=== PATIENT | female | born 1995 | race African-American/Black ===

== ENCOUNTER 2020-10-09 11:46 | Emergency (ER) | payer OTHER, SELFPAY ==
[2020-10-09 11:58] VITALS: BP 123/83; PULSE 89; RESP 17; TEMP 36.6; O2SAT 98
[2020-10-09 12:14] LABS: Basophils Percent Auto 0.4 % (0.2-1.2); Eosinophils Absolute Auto 0.1 K/mm3 (0-0.3); Hematocrit 37.7 % (37.0-47.0); Hemoglobin 11.8 g/dL (12.0-15.0); Immature Granulocyte Absolute 0.03 K/mm3 (0.00-0.031); Immature Granulocyte Percent A 0.3 % (0-0.5); Lymphocytes Absolute Auto 2.41 K/mm3 (0.9-3.2); Lymphocytes Percent Auto 25.1 % (18.3-44.2); Mean Corpuscular HGB Conc 31.3 g/dl (32-36); Mean Corpuscular Hemoglobin 24.9 pg (26-34); Mean Corpuscular Volume 79.5 fl (80-100); Mean Platelet Volume 9.9 fl (7.4-10.4); Monocytes Absolute Auto 0.8 K/mm3 (0.1-0.6); Monocytes Percent Auto 8.4 % (2.6-8.5); Neutrophils Absolute Auto 6.2 K/mm3 (1.3-6.7); Neutrophils Percent Auto 64.8 % (45.5-73.1); Platelet Count Result 328 k/mm3 (150-375); Red Blood Count 4.74 M/mm3 (4.2-5.4); Red Cell Distribution Width 16.1 % (11.5-14.5); White Blood Count 9.6 K/mm3 (4.5-10.0)
[2020-10-09 12:26] LABS: Add Urine Microscopic? YES; Anion Gap 5 mmol/L (8-16); Appearance Urine Cloudy (Clear); Bacteria Urine Trace /hpf; Bilirubin Urine Negative (Negative); Blood Urea Nitrogen 11 mg/dL (7-17); Blood Urine Negative (Negative); Calcium 8.8 mg/dL (8.4-10.2); Carbon Dioxide 25 mmol/L (22-30); Chloride 107 mmol/L (98-107); Color Urine Yellow (Yellow); Estimated CRCL calculation 103 ml/min; Estimated Glomerular Filt Rate > 60; Glucose 111 mg/dL (65-105); Glucose Urine UA Negative (Negative); Ketones Urine Negative (Negative); Leukocyte Esterase Ur 2+ LEU/UL (Negative); Mucus Urine Rare /lpf; Nitrate Urine Negative (Negative); Potassium 3.9 mmol/L (3.4-5.0); Protein Urine 1+ mg/dL (Negative); Sodium 137 mmol/L (137-145); Specific Grav Ur 1.014 (1.001-1.035); Squamous Epithelial Cell Urine Many /hpf (Few); Transitional Epi Cells Urine Rare /hpf (None Seen); Urobilinogen Urine Negative mg/dL (<2.0); WBC Urine >75 /hpf
--- NOTE | 2020-10-09 12:31 | ED.ABDPAIN ---
HPI - Abdominal Pain General Chief Complaint: Urogenital-Female Stated Complaint: kidney pain Time Seen by Provider: 10/09/20 11:47 Source: patient Mode of arrival: ambulatory Limitations: no limitations History of Present Illness HPI narrative: Patient is a 25-year-old female who presents to emergency department for evaluation of urinary symptoms for the last 4 days noting frequency urgency patient notes possible concern for STD patient does not wish for pelvic exam though in the emergency department patient has not been seen for this complaint. Patient denies any fever chills nausea vomiting Related Data Allergies Allergy/AdvReac Type Severity Reaction Status Date / Time No Known Allergies Allergy Unknown Verified 10/09/20 12:02 Review of Systems Review of Systems: All systems reviewed & are unremarkable except as noted in HPI and below PMFSH Past Medical History Medical History (Updated 10/09/20 @ 12:50 by Pavel Phillips PA-C) Umbilical hernia Social History Social History (Updated 10/09/20 @ 12:32 by Pavel Phillips PA-C) Smoking status: Never smoker Gender identity (if verbalized by the patient): Female Exam Narrative: Exam Narrative: GENERAL: Well-appearing, well-nourished, and in no acute distress. HEAD: Normocephalic, atraumatic. EYES: PERRLA and EOMI. ENT: Nares clear, no rhinorrhea or epistaxis. Mucous membranes moist. CHEST: Clear to auscultation. No respiratory distress. No wheezes rales or rhonchi HEART: Regular rate and rhythm. No murmur heard. Normal peripheral pulses. ABDOMEN: Soft, nontender, nondistended EXTREMITIES: Normal range of motion. No edema. SKIN: Warm, dry, no rash. NEURO: No focal deficits. Alert and oriented x3. PSYCH: Normal mood and affect. Course Course Emergency Course: Patient refused pelvic exam and will follow with gynecology for discussion of pelvic exam evaluated for urinary symptoms in the emergency department no high risk changes in the blood work will be given follow-up with gynecology provided with reasons to return Vital Signs Vital signs: Vital Signs Temperature 97.9 F 10/09/20 11:58 Pulse Rate 89 10/09/20 11:58 Respiratory Rate 17 10/09/20 11:58 Blood Pressure 123/83 10/09/20 11:58 Pulse Oximetry 98 10/09/20 11:58 Temperature 97.9 F 10/09/20 11:58 Pulse Rate 89 10/09/20 11:58 Respiratory Rate 17 10/09/20 11:58 Blood Pressure 123/83 10/09/20 11:58 Pulse Oximetry 98 10/09/20 11:58 MDM - Abdominal Pain MDM Narrative Medical decision making narrative: Please patient evaluated for urinary symptoms found to have urinary tract infection given a dose of Rocephin prior to discharge refused pelvic exam will follow with gynecology has been given reasons to return Lab Data Result diagrams: 10/09/20 12:05 10/09/20 12:05 Labs: Lab Results 10/09/20 10/09/20 10/09/20 Range/Units 12:04 12:05 12:05 WBC 9.6 (4.5-10.0) K/mm3 RBC 4.74 (4.2-5.4) M/mm3 Hgb 11.8 L (12.0-15.0) g/dL Hct 37.7 (37.0-47.0) % MCV 79.5 L (80-100) fl MCH 24.9 L (26-34) pg MCHC 31.3 L (32-36) g/dl RDW 16.1 H (11.5-14.5) % Plt Count 328 (150-375) k/mm3 MPV 9.9 (7.4-10.4) fl Immature Gran % (Auto) 0.3 (0-0.5) % Neut % (Auto) 64.8 (45.5-73.1) % Lymph % (Auto) 25.1 (18.3-44.2) % Osborne % (Auto) 8.4 (2.6-8.5) % Eos % (Auto) 1.0 (0-4.4) % Baso % (Auto) 0.4 (0.2-1.2) % Lymph # (Auto) 2.41 (0.9-3.2) K/mm3 Osborne # (Auto) 0.8 H (0.1-0.6) K/mm3 Eos # (Auto) 0.1 (0-0.3) K/mm3 Baso # (Auto) 0.0 (0.0-0.1) K/mm3 Abs Immat Gran (auto) 0.03 (0.00-0.031) K/mm3 Absolute Neuts (auto) 6.2 (1.3-6.7) K/mm3 Absolute Nucleated RBC 0.0 (0.0-0.012) K/mm3 Nucleated RBC % 0.0 (0.0-0.2) % Sodium (137-145) mmol/L Potassium (3.4-5.0) mmol/L Chloride (98-107) mmol/L Carbon Dioxide (22-30) mmol/L Anion Gap (
[2020-10-09] MEDS: KETOROLAC 30 MG/ML VIAL (*BKC) IV PUSH (13:19)
[2020-10-09 13:54] VITALS: BP 112/67; PULSE 90; RESP 17; O2SAT 98
== END 2020-10-09 13:55 | disposition home or self-care (01) ==
PROVIDERS: Emergency Medicine Emergency Medical Services; Emergency Provider Emergency Medicine
DX: N39.0 Urinary tract infection, site not specified (principal)
CPT/HCPCS: 36415; 80048; 81001; 81025; 85025; 87077; 87086; 87088; 87186; 87491; 87591; 96365; 96375; 99284; J0696; J1885

== ENCOUNTER 2020-10-27 11:04 | Emergency (ER) | payer OTHER, SELFPAY ==
--- NOTE | 2020-10-27 11:09 | ED.FEMALEGU ---
HPI - Female Genitourinary General Chief complaint: Urogenital-Female Stated complaint: kidney infection Time Seen by Provider: 10/27/20 11:18 Source: patient and RN notes reviewed Mode of arrival: ambulatory Limitations: no limitations History of Present Illness HPI Narrative: 25-year-old female presents with concern for possible urinary tract infection. Reports 2-day history of urine frequency, dysuria, right low back pain, suprapubic discomfort, urinary urgency, nausea. Patient was seen in the emergency room 18 days ago and was treated with doxycycline for urinary tract infection. Reports she took approximately 5 days of the course of antibiotics, however the antibiotic caused her to have hallucinations so she discontinued it. Reports symptoms seem to have resolved. She denies concern for STDs. Patient reports having sexual intercourse 3 weeks ago and had been concerned possibly she had a condom retained. She denies any abnormal vaginal discharge, fever, pelvic pain, pain with sex. MD elicited complaint: UTI Related Data Allergies Allergy/AdvReac Type Severity Reaction Status Date / Time acetaminophen [From Midol] AdvReac Nausea and Verified 10/27/20 11:22 Vomiting pamabrom [From Midol] AdvReac Nausea and Verified 10/27/20 11:22 Vomiting Review of Systems Review of Systems: Narrative: CONSTITUTIONAL: Denies malaise, chills, sweats, or fever. CARDIOVASCULAR: Denies chest pain, palpitations, or edema. RESPIRATORY: Denies cough or dyspnea. GASTROINTESTINAL: Denies abdominal pain, nausea, vomiting, diarrhea, bloody, or mucous stools. GENITOURINARY: Reports dysuria, frequency, urgency, suprapubic discomfort, flank pain. Denies hematuria. SKIN: Denies rash or itching. MUSCULOSKELETAL: Reports right low back pain. Denies myalgia. NEUROLOGIC: Denies numbness, weakness, or headache. PSYCHIATRIC: Denies current anxiety or depression. All systems reviewed & are unremarkable except as noted in HPI and below PMFSH Past Medical History Medical History (Updated 10/27/20 @ 11:31 by Jaycee Miller NP) Umbilical hernia Social History Social History (Updated 10/09/20 @ 12:32 by Pavel Phillips PA-C) Smoking status: Never smoker Gender identity (if verbalized by the patient): Female Comments At time of signature, agree with nursing past medical, surgical, social and family history. There is no relevant family history pertinent to the presenting complaint Exam Narrative: Exam Narrative: GENERAL: Well-appearing, well-nourished, and in no acute distress. HEAD: Normocephalic. EYES: PERRLA, conjunctivae clear. NECK: Supple. No lymphadenopathy CHEST: Clear to auscultation. No respiratory distress. HEART: Regular rate and rhythm. ABDOMEN: Soft, nontender upon palpation, nondistended, normal active bowel sounds, no palpable or pulsatile masses, no guarding. No CVA tenderness SKIN: Warm, dry, no rash. NEURO: Alert and oriented x3. PSYCH: Normal mood and affect Course Course Emergency Course: Discussed with patient the need to do a pelvic exam to examine for any retained foreign body such as a condom. Patient declines pelvic exam at this time, reports if her symptoms do not improve with antibiotic she will return for care. Patient is aware of diagnosis, understands and agrees to treatment plan. Anticipatory guidance given. Patient agrees to follow-up as directed and is aware of reasons to seek care at the emergency department. Portions of this record may have been created with voice recognition software Vital Signs Vital signs: Vital Signs Temperature 98.1 F 10/27/20 11:17 Pulse Rate 73 10/27/20 11:17 Respiratory Rate 16 10/27/20 11:17 Blood Pressure 128/88 10/27/20 11:17 Pulse Oximetry 99 10/27/20 11:17 Temperature 98.1 F 10/27/20 11:22 Pulse Rate 73 10/27/20 11:22 Respiratory Rate 16 10/27/20 11:22 Blood Pressure 128/88 10/27/20 11:22 Pulse Oximetry 99 10/27/20 11:22 Re
[2020-10-27 11:17] VITALS: BP 128/88; PULSE 73; RESP 16; TEMP 36.7; O2SAT 99
[2020-10-27 11:22] VITALS: BP 128/88; PULSE 73; RESP 16; TEMP 36.7; O2SAT 99
== END 2020-10-27 11:34 | disposition home or self-care (01) ==
PROVIDERS: Emergency Provider Nurse Practitioner
DX: N39.0 Urinary tract infection, site not specified (principal)
CPT/HCPCS: 81003; 87077; 87086; 87088; 87186; 99213; G0463

== ENCOUNTER 2020-10-28 10:03 | Emergency (ER) | payer OTHER, SELFPAY ==
[2020-10-28] VITALS (27 sets, daily range): BP systolic 118–127; BP diastolic 70–84; PULSE 70–90; RESP 12–18; TEMP 36.1; O2SAT 97–100
--- NOTE | ~2020-10-28 | CT_ITS ---
EXAMINATION: CT abdomen pelvis wo con DATE: 10/28/2020 12:20 INDICATION: Lower abdominal pain TECHNIQUE: Computed tomography (CT) of the abdomen and pelvis was performed without intravenous contr ast. The dose-length product (DLP) was 340.35 mGy-cm. Automated exposure control and iterative recons truction technique were employed. COMPARISON: None FINDINGS: The lung bases are clear. The heart size is normal. The liver, spleen, pancreas, gallbladde r, and adrenal glands are normal. The kidneys are unremarkable. No stones are identified in the kidne ys, ureters, or bladder. There is no hydronephrosis or hydroureter. There are multiple pelvic phlebol iths. The appendix is normal. No pathologically enlarged abdominal or pelvic lymph nodes are identifi ed. There is no free intraperitoneal gas or evidence of bowel obstruction. IMPRESSION: 1. No CT correlate for the patient's symptoms. Reviewed, dictated and finalized at location [facility]
--- NOTE | 2020-10-28 10:38 | ED.ABDPAIN ---
HPI - Abdominal Pain General Chief Complaint: Abdominal Pain Stated Complaint: UTI Time Seen by Provider: 10/28/20 10:10 Source: patient Mode of arrival: ambulatory Limitations: no limitations History of Present Illness HPI narrative: This is a 25 year old female that presents to the ER for urinary tract infection. Reports she was seen for this at the beginning of the month. She did not quite finish her antibiotics because she was having worsening hallucinations. Reports history of bipolar depression and anxiety. She is not currently on any medications for this. Reports she has had visual and auditory hallucinations since childhood. Has had several hospitalizations at psychiatric facilities. Reports no previous attempts at self harm or suicide. Reports no current thoughts of harming herself or anyone else. Reports she has a good support system. Reports she started to have dysuria again over the last couple of days. Associated with flank pain, lower abdominal pain, nausea and vomiting. Patient was tested for Chlamydia and gonorrhea at her first visit, these came back negative. She was presumptively treated at that time. Denies fever. Related Data Home Medications Medication Instructions Recorded Confirmed phenazopyridine 10/28/20 Allergies Allergy/AdvReac Type Severity Reaction Status Date / Time pamabrom [From [facility]] AdvReac Nausea and Verified 10/27/20 11:22 Vomiting Review of Systems Review of Systems: Narrative: CONSTITUTIONAL: Denies fever GASTROINTESTINAL: Reports abdominal pain, nausea, vomiting GENITOURINARY: Reports dysuria. Denies hematuria. SKIN: Denies rash All systems reviewed & are unremarkable except as noted in HPI and below PMFSH Past Medical History Medical History (Updated 10/28/20 @ 17:42 by Jane Rushing PA-C) Umbilical hernia Social History Social History (Updated 10/28/20 @ 10:47 by Jane Rushing PA-C) Smoking status: Current some day smoker Gender identity (if verbalized by the patient): Female Exam Narrative: Exam Narrative: GENERAL: Well-appearing, well-nourished, and in no acute distress. HEAD: Normocephalic, atraumatic. EYES: EOMI. ENT: Mucous membranes moist. Oropharynx without tonsillar hypertrophy exudate or other lesions. NECK: Supple. No adenopathy or masses. CHEST: Clear to auscultation. No respiratory distress. No wheezes rales or rhonchi HEART: Regular rate and rhythm. No murmur heard. Normal peripheral pulses. ABDOMEN: Soft, nondistended, normal active bowel sounds. Mild tenderness to palpation throughout the lower abdomen, without guarding. CVA tenderness on the right EXTREMITIES: Normal range of motion. No edema. SKIN: Warm, dry, no rash. NEURO: No focal deficits. Alert and oriented x3. PSYCH: Normal mood and affect PELVIC: Normal external genitalia. Normal appearing cervix. Small amount of white cervical discharge. No CMT Course Vital Signs Vital signs: Vital Signs Pulse Oximetry 100 10/28/20 10:19 Temperature 97 F L 10/28/20 10:20 Pulse Rate 80 10/28/20 17:15 Respiratory Rate 16 10/28/20 17:15 Blood Pressure 121/72 10/28/20 17:15 Pulse Oximetry 98 10/28/20 17:15 MDM - Abdominal Pain MDM Narrative Medical decision making narrative: Patient presents to the emergency department for continued urinary symptoms, abdominal discomfort, and flank pain. Was seen here earlier this month for a urinary tract infection. Chlamydia and gonorrhea were sent at that time. She was treated with ceftriaxone and doxy. She is afebrile and nontoxic-appearing. CBC shows mild leukocytosis to 11. Metabolic panel without concerning findings. UA with possible evidence of continued infection. This will be sent for a culture. CT scan of the abdomen and pelvis is without acute findings. Patient was updated on case findings. Chlamydia and gonorrhea were once again sent. Her trichomonas was positive. She will be treated for this today. Patient will
[2020-10-28 10:47] LABS: Add Urine Microscopic? YES; Appearance Urine Cloudy (Clear); Bacteria Urine Trace /hpf; Bilirubin Urine Negative (Negative); Color Urine Yellow (Yellow); Glucose Urine UA Negative (Negative); Ketones Urine 2+ mg/dL (Negative); Leukocyte Esterase Ur 2+ LEU/UL (Negative); Mucus Urine Few /lpf; Nitrate Urine Negative (Negative); Protein Urine 2+ mg/dL (Negative); Specific Grav Ur 1.023 (1.001-1.035); Squamous Epithelial Cell Urine Many /hpf (Few); Urobilinogen Urine Negative mg/dL (<2.0); WBC Urine >75 /hpf
[2020-10-28 10:51] LABS: Basophils Absolute Auto 0.1 K/mm3 (0.0-0.1); Basophils Percent Auto 0.4 % (0.2-1.2); Eosinophils Absolute Auto 4.1 K/mm3 (0-0.3); Eosinophils Percent Auto 36.4 % (0-4.4); Hematocrit 40.3 % (37.0-47.0); Hemoglobin 12.5 g/dL (12.0-15.0); Immature Granulocyte Absolute 0.08 K/mm3 (0.00-0.031); Immature Granulocyte Percent A 0.7 % (0-0.5); Lymphocytes Absolute Auto 1.66 K/mm3 (0.9-3.2); Lymphocytes Percent Auto 14.7 % (18.3-44.2); Mean Corpuscular Hemoglobin 25.2 pg (26-34); Mean Corpuscular Volume 81.1 fl (80-100); Monocytes Absolute Auto 0.7 K/mm3 (0.1-0.6); Neutrophils Absolute Auto 4.7 K/mm3 (1.3-6.7); Neutrophils Percent Auto 41.8 % (45.5-73.1); Red Blood Count 4.97 M/mm3 (4.2-5.4); Red Cell Distribution Width 16.8 % (11.5-14.5); White Blood Count 11.3 K/mm3 (4.5-10.0)
[2020-10-28 10:54] LABS: Blood Urine Negative (Negative)
[2020-10-28 11:04] LABS: Alanine Aminotransferase 26 U/L (4-35); Albumin Level 4.7 g/dL (3.5-5.1); Alkaline Phosphatase 80 U/L (38-126); Anion Gap 7 mmol/L (8-16); Aspartate Amino Transferase 37 U/L (14-36); Bilirubin,Total 0.6 mg/dL (0.2-1.3); Blood Urea Nitrogen 15 mg/dL (7-17); Calcium 9.5 mg/dL (8.4-10.2); Carbon Dioxide 26 mmol/L (22-30); Chloride 101 mmol/L (98-107); Estimated CRCL calculation 103 ml/min; Estimated Glomerular Filt Rate > 60; Glucose 93 mg/dL (65-105); Lipase 72 U/L (23-300); Sodium 134 mmol/L (137-145)
[2020-10-28 11:05] LABS: Platelet Clumps Present; Platelet Estimate Increased (Adequate)
[2020-10-28 11:06] LABS: Ethanol < 10 mg/dL (<10); Hypochromasia 2+ (NORMAL); Large Platelets Present; Ovalocytes 1+ (NORMAL); Stomatocytes 1+ (NORMAL)
[2020-10-28 11:09] LABS: Amphetamine Screen Urine Negative (Negative); Barbiturate Screen Urine Negative (Negative); Benzodiazepines Screen Urine Negative (Negative); Cannabinoid Screen Urine Positive (Negative); Cocaine Screen Urine Negative (Negative); Methadone Screen Urine Negative (Negative); Opiate Screen Urine Negative (Negative); Phencyclidine Screen Urine Negative (Negative)
[2020-10-28] MEDS: SODIUM CHLORIDE 0.9% IV 1,000 ML 999 ML IV CONT (11:18)
[2020-10-28] MEDS: ONDANSETRON INJ 4 MG/2 ML VIAL IV PUSH (11:18)
[2020-10-28 11:35] LABS: Thyroid Stimulating Hormone 0.554 uIU/mL (0.465-4.680)
--- NOTE | 2020-10-28 14:32 | PC.NURSE ---
provider maryann notified that pt states that recent iv anbx causing her to have hallucinations like the last anbx did
--- NOTE | 2020-10-28 16:06 | PC.NURSE ---
staff from crisis spoke with pt at length regarding need for consistent psych care, psych meds. pt given info/phone numbers/addresses for shelters and counselors.
== END 2020-10-28 18:04 | disposition home or self-care (01) ==
PROVIDERS: Physician Assistant; Emergency Provider Emergency Medicine; PCP Internal Medicine
DX: A59.9 Trichomoniasis, unspecified (principal); N10 Acute pyelonephritis; F17.200 Nicotine dependence, unspecified, uncomplicated
CPT/HCPCS: 36415; 74176; 80053; 80307; 81001; 81025; 83690; 84443; 85025; 87070; 87491; 87591; 87808; 96365; 96367; 96375; 99284; J0131; J0696; J2405; J7030

== ENCOUNTER 2021-03-13 14:22 | Emergency (ER) | payer OTHER, SELFPAY | END 2021-03-14 04:53 | disposition left against medical advice (07) | DX: Z53.21 Procedure and treatment not carried out due to patient leaving prior to being seen by health care provider (principal) | CPT/HCPCS: 99199 ==

== ENCOUNTER 2021-04-18 15:59 | Emergency (ER) | payer OTHER, SELFPAY ==
[2021-04-18 16:14] VITALS: BP 120/75; PULSE 106; RESP 16; TEMP 37.2; O2SAT 100
[2021-04-18 16:17] VITALS: BP 120/75; PULSE 106; RESP 16; TEMP 37.2; O2SAT 100
--- NOTE | 2021-04-18 16:28 | ED.GENADULT ---
HPI - General Adult General Chief complaint: Dental/Oral Stated complaint: tooth pain Time Seen by Provider: 04/18/21 16:27 Source: patient and RN notes reviewed Mode of arrival: ambulatory Limitations: no limitations History of Present Illness HPI narrative: 25-year-old female presents with concern for dental pain. Reports pain on the right upper and left upper side. Reports. She missed her dentist appointment today. Reports she was seen in the emergency room and given amoxicillin which she finished taking 4 days ago. Reports symptoms have returned. She reports she has been taking tramadol, Vicodin for pain with no relief. She denies fever, malaise, body aches. MD complaint: Dental pain Related Data Allergies Allergy/AdvReac Type Severity Reaction Status Date / Time pamabrom [From [facility]] AdvReac Nausea and Verified 10/27/20 11:22 Vomiting Review of Systems Review of Systems: CONSTITUTIONAL: Denies malaise, chills, sweats, or fever. ENT: Reports right upper and left upper dental pain MUSCULOSKELETAL: Denies myalgia. NEUROLOGIC: Denies numbness, weakness, or headache. All systems reviewed & are unremarkable except as noted in HPI and below PMFSH Past Medical History Medical History (Updated 04/18/21 @ 16:36 by Jaycee Miller NP) Umbilical hernia Social History Social History (Updated 10/28/20 @ 10:47 by Jane Rushing PA-C) Smoking status: Current some day smoker Gender identity (if verbalized by the patient): Female Comments At time of signature, agree with nursing past medical, surgical, social and family history. There is no relevant family history pertinent to the presenting complaint Exam Narrative: GENERAL: Well-appearing, well-nourished, and in no acute distress. HEAD: Normocephalic, atraumatic. EYES: PERRLA, conjunctivae clear ENT: Nares clear. Mucous membranes moist. Oropharynx without edema erythema or lesions. Dental caries noted, no periapical abscess noted, no gumline erythema or edema noted loose teeth noted, tooth #14,3 NECK: Supple. CHEST: No respiratory distress. Speaks in full sentences. HEART: Regular rate and rhythm. SKIN: Warm, dry, no rash. NEURO: Alert and oriented x3. PSYCH: Normal mood and affect Course Course Emergency Course: Patient is aware of diagnosis, understands and agrees to treatment plan. Anticipatory guidance given. Patient agrees to follow-up as directed and is aware of reasons to seek care at the emergency department. Portions of this record may have been created with voice recognition software Vital Signs Vital signs: Vital Signs Temperature 98.9 F 04/18/21 16:14 Pulse Rate 106 H 04/18/21 16:14 Respiratory Rate 16 04/18/21 16:14 Blood Pressure 120/75 04/18/21 16:14 Pulse Oximetry 100 04/18/21 16:14 Temperature 98.9 F 04/18/21 16:17 Pulse Rate 106 H 04/18/21 16:17 Respiratory Rate 16 04/18/21 16:17 Blood Pressure 120/75 04/18/21 16:17 Pulse Oximetry 100 04/18/21 16:17 Reviewed. Medical Decision Making MDM Narrative Medical decision making narrative: Patients pain and complaint coupled with physical findings are consistant with dentalgia. There are no focal signs of space occupying lesions that are compromising to the airway; no dysphagia, odynophagia, dysphonia, or dyspnea. No uvular deviation or soft palate edema. Patient is non-toxic appearing. The floor of the mouth is soft with no signs of Jarrett's Angina; no induration below mandible, no neck pain. Patient is without trismus or drooling and able to swallow secretions. Patient is felt appropriate for discharge home with dental follow up. Vital Signs Vital Signs: Vital Signs Temperature 98.9 F 04/18/21 16:14 Pulse Rate 106 H 04/18/21 16:14 Respiratory Rate 16 04/18/21 16:14 Blood Pressure 120/75 04/18/21 16:14 Pulse Oximetry 100 04/18/21 16:14 Temperature 98.9 F 04/18/21 16:17 Pulse Rate 106 H 04/18/21 16:17 Respiratory Rate
== END 2021-04-18 16:40 | disposition home or self-care (01) ==
PROVIDERS: Emergency Provider Nurse Practitioner
DX: K08.89 Other specified disorders of teeth and supporting structures (principal); F17.200 Nicotine dependence, unspecified, uncomplicated
CPT/HCPCS: 99213; G0463